=== PATIENT | male | born 1995 | race Caucasian/White ===

== ENCOUNTER 2023-02-19 19:47 | Emergency (ER) | payer SELFPAY ==
[2023-02-19 20:15] VITALS: BP 109/62; RESP 17; TEMP 36.8; O2SAT 97; BMI 28.5
--- NOTE | 2023-02-19 20:30 | XRR_ITS ---
PROCEDURE INFORMATION: Exam: XR Right Foot Exam date and time: 02/19/2023 8:56 PM Age: 27 years old Clinical indication: Injury or trauma; Other: Puncture; Right; Foreign body involvement not specified; Patient HX: Punture wound to ball of RT foot from a nail this evening. ; Additional info: Puncture, nail, bottom of foot TECHNIQUE: Imaging protocol: Radiologic exam of the right foot. Views: 3 or more views. COMPARISON: No relevant prior studies available. FINDINGS: Bones/joints: Normal. Soft tissues: Normal. Other findings: Three nonweightbearing portable views were submitted. XR/XR foot RT min 3V* [id number] IMPRESSION: No acute findings or obvious radiopaque soft tissue foreign bodies.
[2023-02-19] MEDS: tetanus-dipt-pertussis 0.5 mL SDV IM (20:50)
[2023-02-19 20:52] VITALS: BP 108/63; PULSE 62; RESP 18; O2SAT 98
[2023-02-19] MEDS: cephALEXin 500 mg Capsule PO (21:48)
[2023-02-19] MEDS: ciprofloxacin 500 mg Tablet PO (21:48)
[2023-02-19 21:49] VITALS: BP 108/63; PULSE 62; RESP 18; O2SAT 98
--- NOTE | 2023-02-20 02:36 | ED_ITS ---
HPI - Extremity Problem General: Chief complaint: Extremity Injury, Lower Stated complaint: nail in foot Time Seen by Provider: 02/19/23 20:29 Source: patient Mode of arrival: ambulatory Limitations: no limitations History of Present Illness: Patient presents emergency department today accompanied by family for evaluation treatment of puncture wound sustained to the bottom of his right foot. Patient states that while wearing his work boots, he kicked a piece of tin which had a nail sticking out of it. Patient states that the nail did go through his boot and impacted the plantar aspect of his right foot just proximal to the first MTP joint. Patient admits his tetanus immunization is greater than 5 years old. Review of Systems General: Reports: 10 or more systems reviewed and unremarkable except in HPI and below PFSH ED PFSH: Social History Smoking and tobacco status: current every day smoker Alcohol intake: never Substance/Drug Use: never Physical Exam Const: COMMON NORMALS: no acute distress, patient oriented x3 and alert HENMT: COMMON NORMALS: normocephalic, atraumatic and hearing grossly normal bilaterally HEAD & SCALP: normocephalic and atraumatic Eye: COMMON NORMALS: Equal, round and reactive pupils present, EOMs intact bilaterally and conjunctivae normal CONJUNCTIVA: Yes conjunctivae normal PUPIL: Yes Equal, round and reactive pupils present Neck/C-Spine: COMMON NORMALS: full ROM and no JVD Lymph: LYMPHATIC: no lymphadenopathy noted Resp: COMMON NORMALS: normal respiratory effort, No retractions and No use of accessory muscles Cardio: COMMON NORMALS: no JVD and regular rate RATE: regular rate Extremity: NARRATIVE EXTREMITY EXAM: Patient has an obvious puncture wound to the plantar aspect of his right foot just proximal to the first MTP joint. There is no significant swelling or redness present at this time. There is no active bleeding but there is a small scab. The area is tender and sore to touch. Neuro: COMMON NORMALS: patient oriented x3 SENSORIUM/ORIENTATION: Yes alert Psych: COMMON NORMALS: mental status grossly normal, Normal thought process present, cooperative and normal affect THOUGHT PROCESS: Normal thought process present Skin: COMMON NORMALS: no rashes or lesions noted and turgor normal GENERAL SKIN EXAM: no rashes or lesions noted and turgor normal Course Vital Signs: Vital signs: Vital Signs Temperature 98.3 F 02/19/23 20:15 Pulse Rate 62 02/19/23 21:49 Respiratory Rate 18 02/19/23 21:49 Blood Pressure 108/63 02/19/23 21:49 Pulse Oximetry 98 02/19/23 21:49 Oxygen Delivery Me thod Room Air 02/19/23 20:52 MDM - Extremity (Nontraumatic) Medical Decision Making X-ray shows no obvious retained foreign materials from the puncture wound. Puncture wound was cleaned using Betadine here in the emergency department and tetanus immunization was updated. Discussed with the patient the concern for various infection-especially given that the nail went through the patient's work boot. Patient was given a first dose of Cipro and Keflex here in the ER as well as strict instructions for wound care and bandage changing. 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 I also requested a follow-up appointment with podiatry for a general wound check when he returns home. Differential Diagnosis Likely cellulitis (Puncture wound, retained foreign body, need for tetanus immunization) Lab Data Radiology Impressions Foot X-Ray 02/19/23 20:30 IMPRESSION: No acute findings or obvious radiopaque soft tissue foreign bodies. Discharge Plan Discharge Patient Disposition: Home Clinical Impression: Puncture wound of foot, Need for immunization with diphtheria, tetanus, and poliovirus vaccine Condition: Stable Prescriptions: New ciprofloxacin HCl 500 mg tablet 500 mg PO BID 5 Days Qty: 10 0RF cephalexin 500 mg capsule 500 mg PO Q8H 5 Days Qty: 15 0RF ketorolac 10 mg tablet 10 mg PO Q8H PRN (Reason: pain) Qty: 30 0RF No Action famotidine [Acid Capsule Filling Machine Operator (famotidine)] 20 mg tablet 20 mg PO DAILY azithromycin 250 mg tablet See Rx Instructions PO .COMPLEX Qty: 6 0RF Rx Instructions: take 500 mg today (day 1), then 250 mg for 4 days (days 2-5) PO Discharge Orders: Discharge ED (Routine); Ordered 02/19/23 Ordered By: Eva Eller Discharge Diet: Usual diet Discharge Activity: Increase activity as tolerated Patient Instructions: Puncture Wound in the Foot (ED) Activity Restrictions/Additional Instructions: X-ray today shows no signs of any bony injury or retained foreign material. We updated your tetanus immunization. We washed the wound with Betadine and provided you first round of antibiotics here in the emergency department. You need to continue taking the 2 antibiotics to prevent infection over the next 5 days. We recommend washing the wound at least once if not twice a day with warm water and a mild soap. I also encourage you to keep it covered with a bandage and covered with a clean sock to prevent direct contact to the bottoms of the shoe or ground. If it anytime your socks become wet or soiled they need to be changed immediately. The wound should be washed and cleaned and rebandaged as well. I requested a follow-up appointment with podiatry for recheck of your wound when you return home. However, if for any reason you have any concerns for infection or worsening of your condition you should be seen and reevaluated regardless of where you are at in your trip. Coding Level of Care Code ED Volunteer Coordinator for Jakob Kimble
--- NOTE | 2023-02-20 08:19 | DCPLANNER ---
Addendum entered by Gaby Chandra 02/21/23 11:17: Patient had a follow up appointment with podiatry - patient did attend appointment. Original Note: irrigation manager had message to schedule a follow up appointment for patient with podiatry. irrigation manager sent patients information to the front office staff at podiatry. Patients information will be printed and reviewed. Clinic will call patient with appointment information.
--- NOTE | 2023-03-02 12:42 | DCPLANNER ---
biofuels product manager called patient due to no primary care physician - patient declines at this time.
== END 2023-02-19 21:50 | disposition home or self-care (01) ==
PROVIDERS: Emergency Provider Physician Assistant
DX: S91.331A Puncture wound without foreign body, right foot, initial encounter (principal); W45.0XXA Nail entering through skin, initial encounter; F17.210 Nicotine dependence, cigarettes, uncomplicated; Z23 Encounter for immunization
CPT/HCPCS: 73630; 90471; 90715; 99283